=== PATIENT | female | born 1990 | race American Indian/Alaskan Native ===

== ENCOUNTER 2020-09-22 09:00 | Inpatient (IN) | payer MEDICAID ==
[2020-09-22] MEDS ORDERED: NALOXONE 0.4 MG/1 ML INJ IV PRN (11:12)
[2020-09-22] MEDS ORDERED: LIDOCAINE (2%) 20 MG/1 ML VIAL 20 ML MDV INFILTRATI ONE (11:12)
[2020-09-22] MEDS ORDERED: TERBUTALINE 1 MG/1 ML INJ SUB-Q PRN (11:12)
[2020-09-22] MEDS ORDERED: ONDANSETRON 4 MG/2 ML INJ IV PRN (11:12)
[2020-09-22] MEDS ORDERED: BUTORPHANOL 2 MG/1 ML INJ IV PRN (11:12)
[2020-09-22] MEDS ORDERED: ePHEDrine SULFATE 50 MG/1 ML INJ IV PRN (11:12)
[2020-09-22] MEDS ORDERED: MINERAL OIL 30 ML ORAL LIQD PO PRN (11:12)
[2020-09-22] MEDS: LACTATED RINGERS 1,000 ML IV SCH (11:24)
[2020-09-22] MEDS ORDERED: OXYTOCIN DRIP 30 UNITS/500 ML BAG IV SCH (12:00)
[2020-09-22] MEDS ORDERED: DINOPROSTONE 10 MG VAG SUPP VG ONE (12:12)
--- NOTE | 2020-09-22 13:20 | History and Physical Report ---
History of Present Illness Date of examination: 09/22/20 Date of admission: 09/22/20 09:00 Chief complaint: Presents for induction of labor secondary to postdates. History of present illness: Late entry to care at 24 1/7 weeks to Life Cycle. course was otherwise uncomplicated. Past History Past Medical History: no pertinent history Past Surgical History: no surgical history Family/Genetic History: none Social history: no significant social history - Obstetrical History Expected Date of Delivery: 09/13/20 Actual Gestation: 41 Week(s) 2 Day(s) : 1 Para: 0 Medications and Allergies Allergies Allergy/AdvReac Type Severity Reaction Status Date / Time influenza virus vaccine qv AdvReac Swelling Verified 09/22/20 09:18 live 2013-14 (2-49 yrs) [From [facility]Does] Home Medications Medication Instructions Recorded Confirmed Last Taken Type Pnv No.121/Iron/Folic Acid 1 each PO DAILY 09/22/20 09/22/20 09/22/20 History [ Multivitamin Tablet] 1 Active Meds: Active Medications Butorphanol Tartrate (Stadol) 1 mg IV Q2H PRN PRN Reason: Pain, Moderate(4-6) LABOR PAIN Butorphanol Tartrate (Stadol) 2 mg IV Q2H PRN PRN Reason: Pain , Severe (7-10) Ephedrine Sulfate (Ephedrine Sulfate) 10 mg IV Q2M PRN PRN Reason: Hypotension Lactated Ringer's (Lactated Ringers) 1,000 mls @ 125 mls/hr IV DIRECT GAVI Last Admin: 09/22/20 11:24 Dose: 125 mls/hr Documented by: Oxytocin/Sodium Chloride (Pitocin/Ns 30 Unit/500ml) 30 units in 500 mls @ 40 mls/hr IV TITR GAVI; Protocol Mineral Oil (Mineral Oil) 30 ml PO QHS PRN PRN Reason: Constipation Naloxone HCl (Naloxone) 0.1 mg IV Q2MIN PRN PRN Reason: Res Rate </= 8 or 02 SAT < 92% Ondansetron HCl (Zofran) 4 mg IV Q8H PRN PRN Reason: Nausea And Vomiting Terbutaline Sulfate (Brethine) 0.25 mg SUB-Q ONCE PRN PRN Reason: Hyperstimulation/Hypertonicity Review of Systems All systems: negative - Vital Signs Vital signs: Vital Signs Temp Pulse Resp BP Pulse Ox 98.9 F 114 H 18 138/66 98 09/22/20 09:20 09/22/20 09:20 09/22/20 09:20 09/22/20 09:20 09/22/20 09:20 Temp Pulse Resp BP Pulse Ox 97.6 F 97 H 16 117/59 99 09/22/20 13:03 09/22/20 13:14 09/22/20 13:03 09/22/20 13:03 09/22/20 13:14 - Physical Exam Breasts: Positive: normal Cardiovascular: Regular rate Lungs: Positive: Clear to auscultation, Normal air movement Abdomen: Positive: normal appearance, soft, normal bowel sounds Genitourinary (Female): Positive: normal external genitalia, normal perenium Vagina: Positive: normal moisture Uterus: Positive: enlarged Anus/Rectum: Positive: normal perianal skin Extremities: Positive: normal - Obstetrical FHR: category 1 Uterine Contraction Monitor Mode: External Cervical Dilatation: 0.5 Cervical Effacement Percentage: 20 station: -3 Uterine Contraction Pattern: Irregular Uterine Tone Measurement Phase: Resting Uterine Contraction Intensity: Mild Results All other labs normal. Assessment and Plan A: IUP at 41 2/7 weeks Category I tracing Postdates GBS Negative P: Admit to L&D per routine orders Cervidil Induction
[2020-09-22 16:29] LABS: Basophils % (Auto) 0.1 % (0.0-1.8); Eosinophils % (Auto) 0.4 % (0.0-4.3); Hematocrit 34.4 % (30.3-42.9); Hemoglobin 11.7 gm/dl (10.1-14.3); Lymphocytes # (Auto) 1.2 K/mm3 (1.2-5.4); Lymphocytes % (Auto) 19.1 % (13.4-35.0); Mean Corpuscular HGB Conc 34 % (30-34); Mean Corpuscular Volume 92 fl (79-97); Monocytes # (Auto) 0.8 K/mm3 (0.0-0.8); Monocytes % (Auto) 12.6 % (0.0-7.3); Platelet Count 262 K/mm3 (140-440); Red Blood Count 3.72 M/mm3 (3.65-5.03)
[2020-09-22 17:20] LABS: Hepatitis C Virus Antibody Non-Reactive (NonReactive)
[2020-09-22] MEDS: BUTORPHANOL 2 MG/1 ML INJ IV PRN (22:09)
[2020-09-23] MEDS: BUTORPHANOL 2 MG/1 ML INJ IV PRN (00:42)
[2020-09-23] MEDS: LACTATED RINGERS 1,000 ML IV SCH (02:17)
[2020-09-23] MEDS ORDERED: diphenhydrAMINE 50 MG/ML VIAL IV PRN (02:47)
[2020-09-23] MEDS ORDERED: NalbUPHINE 10 MG/1 ML INJ IV PRN (02:47)
[2020-09-23] MEDS ORDERED: ONDANSETRON 4 MG/2 ML INJ IV PRN (02:47)
--- NOTE | 2020-09-23 02:49 | Anesthesia Consultation ---
Anesthesia Consult and Med Hx Date of service: 09/23/20 - Airway Anesthetic Teeth Evaluation: Good ROM Head & Neck: Adequate Mental/Hyoid Distance: Adequate Mallampati Class: Class I Intubation Access Assessment: Good - Pulmonary Exam CTA: Yes - Cardiac Exam Cardiac Exam: RRR - Pre-Operative Health Status ASA Pre-Surgery Classification: ASA2 Proposed Anesthetic Plan: Epidural - Pulmonary Hx Smoking: No Hx Asthma: No COPD: No Hx Pneumonia: No Hx Sleep Apnea: No - Cardiovascular System Hx Hypertension: No Hx Heart Attack/AMI: No - Central Nervous System Hx Seizures: No Hx Psychiatric Problems: No - Gastrointestinal Hx Gastroesophageal Reflux Disease: No - Endocrine Hx Renal Disease: No Hx End Stage Renal Disease: No Hx Insulin Dependent Diabetes: No Hx Non-Insulin Dependent Diabetes: No Hx Hypothyroidism: No Hx Hyperthyroidism: No - Hematic Hx Anemia: No Hx Sickle Cell Disease: No - Other Systems Hx Alcohol Use: No
--- NOTE | 2020-09-23 02:50 | Progress Note ---
Labor Epidural - Labor Epidural Start Time: 02:25 Stop Time: 02:45 Performed by:: PRIMITIVO SHIN Procedure: Patient is requesting a laboring epidural for laboring pain. Patient IDed, H&P reviewed, all questions and concerns were answered, and consent was signed. Timeout was performed at bedside. Patient in sitting position. Sterile prep and drape was performed. 3ml of 1% lidocaine skin wheal at L[3]- L [4]. 18- gauge Touhy epidural needle was advanced to loss of resistance with air technique. Negative CSF negative blood. Epidural catheter advanced to [12] centimeters. [-] Aspiration [-] test dose. Sterile dressing applied. Patient tolerated procedure.
[2020-09-23] MEDS ORDERED: fentaNYL-BUPIV 2 MCG/ML-0.125% 200 MCG/100 ML BAG EPIDURAL SCH (03:00)
--- NOTE | 2020-09-23 06:48 | Procedure Note ---
OB Delivery Note - Delivery Date of Delivery: 09/23/20 (0613) Surgeon: HALEIGH ADAMS Estimated blood loss: 200cc - Vaginal Delivery presentation: vertex Delivery position: OA Intrapartum events: mult.variable deceleratio Delivery induction: cervidil Delivery augmentation: rupture of membranes (@0455 Moderate amount of clear flui d) Delivery monitor: internal FHT, internal uterine Route of delivery: Delivery placenta: spontaneous Delivery cord: 3 umbilical vessels Episiotomy: none Delivery laceration: 1st degree Delivery repair: vicryl Anesthesia: epidural Delivery comments: of a live 7'4 female infant over bilateral labial lacerations under epidural anesthesia with Apgars of 8 and 9 at 0613 on 09/23/2020. directly to maternal abd/chest, skin to skin contact. Delayed cord clamping and cutting; cord cut by the Father of the Baby. Spontaneous delivery of placenta complete and intact with Lopez side presenting at 0617. Fundus is firm and midline located 4 below the U. Lochia is scant. 1st degree bilateral lacerations repaired with 2-0 Vicryl on a SH. - A at 1 minute: 8 at 5 minutes: 9 Gender: Female (7'4)
[2020-09-23] MEDS ORDERED: WITCH HAZEL/ GLYCERIN PAD TP PRN (07:07)
[2020-09-23] MEDS ORDERED: HYDROcodone/ACETAMINOPHEN 5-325 MG TAB PO PRN (07:07)
[2020-09-23] MEDS ORDERED: LANOLIN/ZINC/DIMETHICONE (LANSINOH) 7 GM TP PRN (07:07)
--- NOTE | 2020-09-23 09:57 | Post Anesthesia Evaluation ---
- Post Anesthesia Evaluation Patient Participated: Yes Airway Patent: Yes Stable Respiratory Function: Yes Nausea/Vomiting: No Temp > 96.8F: Yes Pain Manageable: Yes Adequeate Hydration: Yes Anesthesia Complications: No Block Receding Appropriately: Yes Patient on Ventilator: No
[2020-09-23] MEDS: IBUPROFEN 600 MG TAB PO SCH (18:50)
[2020-09-23] MEDS: PRENATAL VIT27-FE FUMARATE-FOLIC ACID VIT TAB PO SCH (18:51)
[2020-09-23 20:44] LABS: Hematocrit 36.1 % (30.3-42.9); Hemoglobin 12.3 gm/dl (10.1-14.3)
[2020-09-24] MEDS: IBUPROFEN 600 MG TAB PO SCH ×2 (05:49)
[2020-09-24] MEDS: PRENATAL VIT27-FE FUMARATE-FOLIC ACID VIT TAB PO SCH (10:05)
[2020-09-24] MEDS ORDERED: medroxyPROGESTERone ACETATE 150 MG/ML SYRINGE IM ONE (13:06)
--- NOTE | 2020-09-24 13:06 | Progress Note ---
Assessment and Plan A: PP Day#1 Stable P: Follow Routine Orders Depo Provera 150mg IM prior to discharge D/C home today per patient request RTO in 6 Weeks Subjective - Subjective Date of service: 09/24/20 Interval history: Late entry to care at 24 1/7 weeks to Life Cycle. course was otherwise uncomplicated. Patient reports: appetite normal, voiding normally, pain well controlled, flatus, ambulating normally : doing well, bottle feeding Objective - Vital Signs Latest vital signs: Vital Signs Temp Pulse Resp BP BP Pulse Ox 09/24/20 07:55 97.9 F 78 18 105/62 09/24/20 05:49 20 09/24/20 04:30 98 F 74 18 118/79 09/24/20 00:00 98.6 F 78 16 112/68 09/23/20 20:35 98.0 F 109 H 18 116/70 97 09/23/20 16:23 98.4 F 88 105/72 Intake and Output 09/23/20 09/24/20 09/24/20 22:59 06:59 14:59 Intake Total 500 320 Balance 500 320 Intake: Oral 200 320 Intake, Free Water 300 Other: Total, Intake Amount 200 320 # Voids Void 1 1 - Exam Breasts: Present: normal Cardiovascular: Present: Regular rate Lungs: Present: Clear to auscultation, Normal air movement Abdomen: Present: normal appearance, soft, normal bowel sounds Uterus: Present: normal, firm, fundal height below umbilicus Extremities: Present: normal
--- NOTE | 2020-09-24 13:08 | Discharge Summary ---
Providers - Providers Date of Admission: 09/22/20 09:00 Date of discharge: 09/24/20 Attending physician: JULIA MCLEOD JR, MD Primary care physician: JULIA MCLEOD JR, MD Hospitalization Reason for admission: induction of labor Delivery: Episiotomy: none Laceration: 1st degree Other procedures: none complications: none Discharge diagnosis: IUP at term delivered [place] baby: female Condition at discharge: Good Disposition: DC-01 TO HOME OR SELFCARE Plan - Provider Discharge Summary Activity: routine, no sex for 6 weeks, no heavy lifting 4 weeks, no strenuous exercise Diet: routine Instructions: routine Additional instructions: [] Smoking cessation referral if applicable(refer to patient education folder for contact #) [] Refer to [facility] Booklet Call your doctor immediately for: * Fever > 100.5 * Heavy vaginal bleeding ( >1 pad per hour) * Severe persistent headache * Shortness of breath * Reddened, hot, painful area to leg or breast * Drainage or odor from incision. * Keep incision clean and dry at all times and follow doctor's instructions regarding bathing/showering - Follow up plan Follow up: JULIA MCLEOD JR, MD [Primary Care Provider] - 6 Weeks
[2020-09-24 17:25] VITALS: BP 101/66
== END 2020-09-24 15:50 | disposition home or self-care (01) | DRG 775 ==
LOC: LD 09:00 → OB 09-23 08:50
PROVIDERS: ADMIT Obstetrics & Gynecology; ATTEND Obstetrics & Gynecology
PROC: 10E0XZZ Delivery of Products of Conception, External Approach (ICD-10-PCS; principal; 2020-09-23)
PROC: 3E0R3BZ Introduction of Anesthetic Agent into Spinal Canal, Percutaneous Approach (ICD-10-PCS; 2020-09-23)
PROC: 00HU33Z Insertion of Infusion Device into Spinal Canal, Percutaneous Approach (ICD-10-PCS; 2020-09-23)
PROC: 0HQ9XZZ Repair Perineum Skin, External Approach (ICD-10-PCS; 2020-09-23)
PROC: 0UQMXZZ Repair Vulva, External Approach (ICD-10-PCS; 2020-09-23)
PROC: 3E0P7VZ Introduction of Hormone into Female Reproductive, Via Natural or Artificial Opening (ICD-10-PCS; 2020-09-23)
DX: O48.0 Post-term pregnancy (principal); Z37.0 Single live birth; Z3A.41 41 weeks gestation of pregnancy; Z20.828 Contact with and (suspected) exposure to other viral communicable diseases; O76 Abnormality in fetal heart rate and rhythm complicating labor and delivery; O70.0 First degree perineal laceration during delivery; Z88.7 Allergy status to serum and vaccine
CPT/HCPCS: 36415; 59200; 85014; 85018; 85025; 86592; 86706; 86762; 86803; 86850; 86900; 86901; 87806; G0378; J0595; J7120; U0003

== ENCOUNTER 2021-12-31 09:52 | Emergency (ER) | payer MEDICAID ==
[2021-12-31] MEDS ORDERED: IBUPROFEN 800 MG TAB PO ONE (10:56)
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
--- NOTE | 2021-12-31 11:37 | XRay Report ---
Right ankle 3 views INDICATION: Injury FINDINGS: Small sclerotic lesion along the lateral aspect of the distal tibia shaft. Ankle alignment appears normal. No acute fracture or dislocation. IMPRESSION: Sclerotic lesion along the lateral aspect of the distal tibia shaft could represent ossified fibroma. No aggressive features are definitely seen. No acute fracture. Right knee 3 views INDICATION: Pain FINDINGS: Alignment appears normal. No acute fracture dislocation. Signer Name: Merrill Musa MD Signed: 12/31/2021 11:33 AM Workstation Name: [id number]
[2021-12-31 12:41] VITALS: BP 119/71
== END 2021-12-31 13:00 | disposition home or self-care (01) ==
LOC: ED 09:52
DX: S93.401A Sprain of unspecified ligament of right ankle, initial encounter (principal); S83.8X1A Sprain of other specified parts of right knee, initial encounter; S80.11XA Contusion of right lower leg, initial encounter; X58.XXXA Exposure to other specified factors, initial encounter; Y93.89 Activity, other specified; Y92.89 Other specified places as the place of occurrence of the external cause; Y99.8 Other external cause status
CPT/HCPCS: 99283